=== PATIENT | male | born 1950 | race Caucasian/White ===

== ENCOUNTER 2017-02-10 13:39 | Inpatient (IN) | payer OTHER ==
[~2017-02-10] VITALS: Ht 175.3 cm; Wt 65.2 kg
[2017-02-10 14:16] LABS: BASOPHIL % 1.2 % (0-2); PLATELET COUNT 274 x10^3mcL (130-400); RED CELL DISTRIBUTION WIDTH 14.2 % (11.5-14.5)
[2017-02-10 14:35] LABS: CALCIUM 9.4 mg/dL (8.5-10.1); CHLORIDE SERUM 108 mmol/L (98-107); GFR1 36 mL/min; GLUCOSE SERUM 84 mg/dL (74-106); POTASSIUM SERUM 4.9 mmol/L (3.5-5.1); SODIUM SERUM 143 mmol/L (136-145)
[2017-02-10 14:39] LABS: ALBUMIN 3.3 g/dL (3.4-5.0); ALKALINE PHOSPHATASE 43 U/L (46-116); ALT/SGPT 16 U/L (16-63); AST/SGOT 15 U/L (15-37); BILIRUBIN TOTAL 0.3 mg/dL (0.20-1.00); TOTAL PROTEIN, SERUM 8.4 g/dL (6.4-8.2)
[2017-02-10 17:06] VITALS: BP 98/59
[2017-02-10 17:46] LABS: CHOLESTEROL/HDL RATIO 5.3; MAGNESIUM 2.7 mg/dL (1.8-2.4); PHOSPHOROUS 4.9 mg/dL (2.5-4.9)
[2017-02-10 17:49] LABS: T3 TOTAL 0.59 ng/mL
[2017-02-10 17:59] LABS: FREE T4 1.19 ng/dL (0.76-1.46); FREE THYROXINE INDEX 2.6 ug/dL (1.4-4.5); T4(THYROXINE) 6.5 ug/dL (4.7-13.3)
[2017-02-10 19:30] VITALS: BP 85/48
[2017-02-10] MEDS ORDERED: BACLOFEN10 MG PO (20:54)
[2017-02-10] MEDS ORDERED: METOPROLOL SUCC50 M2 PO (20:55)
[2017-02-10] MEDS ORDERED: PROTONIX20 MG PO (20:55)
[2017-02-10] MEDS ORDERED: LIPITOR80 MG PO (20:55)
[2017-02-10] MEDS ORDERED: MOT600 PO (20:56)
[2017-02-10] MEDS ORDERED: HYDRALAZINE HCL10 MG PO (20:56)
[2017-02-10] MEDS ORDERED: SEROQUEL50 M1 PO (20:57)
[2017-02-10] MEDS ORDERED: LISINOPRIL40 MG PO (20:57)
[2017-02-10] MEDS ORDERED: MOBIC15 MG PO (20:57)
[2017-02-10] MEDS ORDERED: ENDOCET1 TA4 PO (20:58)
[2017-02-10] MEDS ORDERED: CLONAZEPAM0.5 MG PO (20:59)
[2017-02-10] MEDS ORDERED: MORPHINE SULFAT30 M6 PO (20:59)
[2017-02-10] MEDS ORDERED: DICLOFENAC POTA50 MG PO (21:00)
[2017-02-10] MEDS ORDERED: VENLAFAXINE HY150 MG PO (21:02)
[2017-02-11] VITALS (7 sets, daily range): BP systolic 106–138; BP diastolic 42–80
[2017-02-11 01:22] LABS: UA SPECIFIC GRAVITY 1.025 (1.005-1.035); microscopic required? YES
[2017-02-11 01:23] LABS: urine erythrocyte 2+ (NEGATIVE)
[2017-02-11 01:24] LABS: AMPHETAMINE QUAL UR NONE DETECTED (NEG <=1000)
[2017-02-11 07:45] LABS: CALCIUM 8.2 mg/dL (8.5-10.1); CHLORIDE SERUM 112 mmol/L (98-107); GFR1 > 60 mL/min; GLUCOSE SERUM 77 mg/dL (74-106); MAGNESIUM 2.2 mg/dL (1.8-2.4); POTASSIUM SERUM 5.1 mmol/L (3.5-5.1); SODIUM SERUM 142 mmol/L (136-145)
[2017-02-11 08:27] LABS: BASOPHIL % 0.4 % (0-2); PLATELET COUNT 219 x10^3mcL (130-400); RED CELL DISTRIBUTION WIDTH 14.1 % (11.5-14.5)
[2017-02-12 05:47] VITALS: BP 134/53
[2017-02-12 09:30] VITALS: BP 124/54
[2017-02-12 14:43] VITALS: BP 92/65
[2017-02-12 14:47] VITALS: BP 138/56
[2017-02-12 16:50] VITALS: BP 135/56
[2017-02-12 21:24] VITALS: BP 145/61
[2017-02-13 05:23] VITALS: BP 143/68
[2017-02-13 08:54] VITALS: BP 140/60
[2017-02-13] MEDS ORDERED: LEVOFLOXACIN750 M1 PO (10:54)
[2017-02-13] MEDS ORDERED: CLINDAMYCIN HC300 MG PO ×2 (10:55→11:53)
[2017-02-13 11:00] VITALS: BP 140/60
[2017-02-13] MEDS ORDERED: LEVAQUIN750 MG PO ×2 (11:51→11:53)
[2017-02-13] MEDS ORDERED: CLEOCIN HCL300 MG PO (11:52)
[2017-02-13] MEDS ORDERED: DICLOFENAC SODI50 MG PO (11:52)
== END 2017-02-13 15:17 | disposition home or self-care (01) | DRG 871 ==
LOC: ED 13:39 → IC 15:38 → DU 02-11 14:23
PROVIDERS: Emergency Medicine; ADMIT Family Medicine
DX: A41.9 Sepsis, unspecified organism (principal); J69.0 Pneumonitis due to inhalation of food and vomit; G93.41 Metabolic encephalopathy; N17.0 Acute kidney failure with tubular necrosis; R65.20 Severe sepsis without septic shock; E86.0 Dehydration; E83.41 Hypermagnesemia; K21.9 Gastro-esophageal reflux disease without esophagitis; R31.9 Hematuria, unspecified; E78.5 Hyperlipidemia, unspecified; I10 Essential (primary) hypertension; M54.9 Dorsalgia, unspecified; G89.29 Other chronic pain; F41.9 Anxiety disorder, unspecified; F31.9 Bipolar disorder, unspecified; F10.20 Alcohol dependence, uncomplicated; I25.2 Old myocardial infarction; Z68.21 Body mass index [BMI] 21.0-21.9, adult; Z95.5 Presence of coronary angioplasty implant and graft; Z79.891 Long term (current) use of opiate analgesic
CPT/HCPCS: 83880; 84439; G0480; J1170; J1940; J1956; J2060; J2270; J3490; J7030; J7040; J7050; Q0092